=== PATIENT | male | born 1945 | race Caucasian/White ===

== ENCOUNTER → 2016-09-20 | Outpatient (CLI) | payer OTHER, BC ==
[~2016-09-20] MED LIST: IOPAMIDOL (ISOVUE 370) 100 ML BTL IV ONE
--- NOTE | 2016-09-20 14:37 | CT ---
CT Chest Angiogram With Contrast Enhancement and Multiplanar Reconstructions - September 20, 2016 at 123 5 hours History: Recurrent atrial fibrillation. Evaluate for pulmonary vein stenoses. Comparison: January 17, 2007. Technique: 1.25-mm axial multidetector helical CT imaging was performed through the chest while 90 mL Isovue-370 were injected intravenously without complication. The images were then transferred to an independent workstation where multiplanar, volume rendering, and three-dimensional reconstructions w ere performed by the interpreting physician and reviewed at multiple windows. Dose reduction techniqu es were utilized. Findings: CT Angiogram for left atrial anatomy: The pulmonary veins are evaluated. There are 2 main pulmonary v eins on the right as well as 2 on the left. Pulmonary veins draining right upper lobe: 15 mm diameter with branching occurring 12 mm from the deanne gin. The right pulmonary vein draining right lower lun mm. Bifurcation occurs 14 mm from the origin. Pulmonary vein draining left upper lun mm with branching occurring about 51 mm from the origin. Pulmonary vein draining left lower lung, 18 mm in diameter with branching occurring 29 mm from the or igin. There is normal enhancement of the pulmonary arterial vasculature without evidence of intraluminal th rombus. The thoracic aorta has a normal contour without aneurysm or dissection. CT Chest: There is a right upper lobe calcified granuloma. Dual-lead pacer is in place. The pacer was previously on the right, now it is on the left side. There are no infiltrates or effusions. There is no hilar or mediastinal lymphadenopathy. Impression: 1. Normal pulmonary vein anatomy as detailed above. 2. Calcified granuloma, benign right upper lobe. 3. Left-sided dual-lead pacer.
== END ==
LOC: FIMAGING 11:57
PROVIDERS: ATTEND Internal Medicine Cardiovascular Disease
DX: J98.4 Other disorders of lung (principal); Z95.0 Presence of cardiac pacemaker
CPT/HCPCS: 75572; Q9967

== ENCOUNTER 2016-09-21 07:00 | Observation (INO) | payer OTHER, BC ==
[2016-09-21] MEDS ORDERED: NS 1,000 ML IV ONE (07:03)
[2016-09-21] MEDS ORDERED: BENZOCAINE UNIT DOSE SPRAY HURRICAINE MM ONE (07:03)
[2016-09-21] MEDS ORDERED: fentaNYL 100 MCG/2 ML INJ IVP ONE (07:03)
[2016-09-21] MEDS ORDERED: MIDAZOLAM 2 MG/2 ML VIAL IVP ONE (07:03)
--- NOTE | 2016-09-21 07:25 | CPEKG ---
Heart Rate: 66 RR Interval: 909 P-R Interval: 192 QRSD Interval: 86 QT Interval: 380 QTC Interval: 399 QRS [place]: 56 T Wave [place]: 37 EKG Severity - ABNORMAL ECG - EKG Impression: ATRIAL-PACED RHYTHM Electronically Signed By: Taqueria Gore 21-Sep-2016 17:42:36
[2016-09-21 07:54] LABS: % IMMATURE GRANULYOCYTES 0.2 % (0.0-1.1); ABSOLUTE IMMATURE GRANULOCYTES 0.01 10^3/uL (0.00-0.10); ADD DIFF? NO; ADD MORPH? NO; ADD SCAN? NO; ATYPICAL LYMPHOCYTE FLAG 0 (0-99); FRAGMENT RBC FLAG 0 (0-99); HEMATOCRIT 43.4 % (40.0-51.0); HEMOGLOBIN 15.1 g/dL (13.7-17.5); LEFT SHIFT FLG 0 (0-99); LIPEMIA HEMOLYSIS FLAG 90 (0-99); MEAN CELL HEMOGLOBIN 30.6 pg (27.9-34.1); MEAN CELL HEMOGLOBIN CONCENTR. 34.8 g/dL (32.4-36.7); PLATELET CLUMPS FLAG 0 (0-99); PLATELET COUNT 224 10^3/uL (150-400); RED BLOOD CELL COUNT 4.93 10^6/uL (4.40-6.38); RED CELL DISTRIBUTION WIDTH 11.9 % (11.5-15.2)
[2016-09-21] MEDS ORDERED: HEPARIN/DEXTROSE 25,000 UNIT/500 ML BAG IV ONE (07:54)
[2016-09-21] MEDS ORDERED: LIDOCAINE 1% 30 ML SDV ONE (07:54)
[2016-09-21] MEDS ORDERED: HEPARIN 10,000 UNIT/10 ML MDV ONE (07:55)
[2016-09-21] MEDS ORDERED: BUPIVACAINE 0.5% 30 ML SDV ONE (07:55)
[2016-09-21] MEDS ORDERED: IOPAMIDOL (ISOVUE-370) 150 ML BTL IV ONE (07:56)
[2016-09-21 08:05] LABS: INR 0.98 (0.83-1.16); PROTIME(PATIENT) 12.9 SEC (12.0-15.0)
[2016-09-21 08:06] LABS: APTT 33.7 SEC (23.0-38.0)
[2016-09-21 08:08] LABS: ANION GAP 9 mEq/L (8-16); CALCIUM 9.1 mg/dL (8.5-10.4); CARBON DIOXIDE 25 mEq/l (22-31); CHLORIDE 107 mEq/L (97-110); CREATININE 0.9 mg/dL (0.7-1.3); GLOMERULAR FILTRATION RATE > 60; GLUCOSE 103 mg/dL (70-100); MAGNESIUM 1.8 mg/dL (1.6-2.3); POTASSIUM 4.5 mEq/L (3.5-5.2); SODIUM 141 mEq/L (134-144)
[2016-09-21] MEDS ORDERED: ROCURONIUM 50 MG/5 ML VIAL ONE (08:34)
[2016-09-21] MEDS ORDERED: ONDANSETRON 4 MG/2 ML VIAL ONE (08:34)
[2016-09-21] MEDS ORDERED: DEXAMETHASONE 4 MG/ML VIAL ONE (08:34)
[2016-09-21] MEDS ORDERED: PROPOFOL 200 MG/20 ML VIAL ONE (08:34)
[2016-09-21] MEDS ORDERED: fentaNYL 100 MCG/2 ML INJ ONE ×2 (08:34→09:57)
[2016-09-21] MEDS ORDERED: LIDOCAINE 2% 5 ML SDV ONE (08:38)
[2016-09-21] MEDS ORDERED: epHEDrine SULFATE 10 MG/ML SYR ONE ×2 (08:58→09:22)
[2016-09-21] MEDS ORDERED: PHENYLEPHRINE HCL 100 MCG/ML SYR ONE (09:04)
[2016-09-21] MEDS ORDERED: PHENYLEPHRINE 10 MG/ML SDV ONE (09:17)
[2016-09-21] MEDS ORDERED: ATROPINE SULFATE 1 MG/10 ML SYR ONE (10:27)
[2016-09-21] MEDS ORDERED: PROTAMINE SULFATE 50 MG/5 ML VIAL IVP ONE (10:35)
[2016-09-21] MEDS ORDERED: TEMAZEPAM 15 MG CAP PO PRN (11:05)
[2016-09-21] MEDS ORDERED: OXYBUTYNIN 5 MG EXT REL TAB PO PRN (11:05)
--- NOTE | 2016-09-21 11:10 | EPPROC ---
Electrophysiology Procedure Note: ELECTROPHYSIOLOGIC STUDY AND BALLOON-CATHETER MEDIATED CRYOABLATION FOR PAROXYSMAL ATRIAL FIBRILLATION Procedures performed: 61451-77 EP evaluation with RA/RV/LA pace/record, with arrhythmia induction 01002-42 EP evaluation with RA/RV pace record, insert/reposition catheter, with arrhythmia induction 47932 Atrial fibrillation ablation Intracardiac echocardiogram Transseptal puncture Fluoroscopy INDICATION: Paroxysmal atrial fibrillation Prior RF ablation x 2 for AFIB in 2005 and 2006 at our institution PROCEDURE: The patient arrived in the Electrophysiology Laboratory in the fasting state. The right groin, left groin and right infraclavicular area were prepped and draped in the usual sterile fashion. Anesthesiologist administered general anesthesia - Dr. Jaime Hernandez . All catheters were placed percutaneously using the Seldinger technique and advanced into position under fluoroscopic guidance. One #7 Irish deflectable octapolar electrode catheter was placed in the His-bundle position via the left femoral vein (2mm spacing, IVC electrode for unipolar recordings). This catheter was placed in the coronary sinus after transseptal puncture and later placed in the SVC-R subclavian vein junction to pace the right phrenic nerve during right pulmonary vein ablation. One #8 Irish AcuNaV ultrasound catheter was placed in the left femoral vein and advanced into the right atrium. One #4 Irish sheath was inserted into the left femoral artery via percutaneous technique and used for continuous arterial blood pressure monitoring and intermittent ACT determination. Programmed stimulation was performed from the right atrium, left atrium (CS) and right ventricle. There was no evidence of AV accessory pathway. Intracardiac echo evaluation of the left atrium and pulmonary veins was performed. Baseline ACT was drawn and heparin bolus was administered and heparin drip was started prior to transseptal puncture. ACT was checked every 15 minutes and maintained in the range of 350-400 seconds. One 14Fr short sheath was placed in the right femoral vein. One 8Fr SL1 sheath was advanced into the right atrium via the 14Fr short sheath. Transseptal puncture was performed under intracardiac ultrasound, fluoroscopic and hemodynamic guidance placing the sheath into the left atrium. [place] RF needle ( C0 curve) was used. The mean left atrial pressure was 12 mmHg. Pulmonary vein angiogram was done using SL1 sheath. CT angiography of pulmonary veins was done previously. There were distinct LSPV, LIPV, RSPV and RIPV. The SL1 sheath was exchanged for a Medtronic Flexcath sheath using an Amplatz stiff guide wire. A 28 mm Cryoballoon catheter with a 20 mm Achieve catheter was placed via the sheath into the left atrium. Intracardiac ultrasound and PV angiograms were used to assist in placing the mapping catheter at the antrum of the pulmonary veins. All pulmonary veins were isolated successfully using cryoballoon ablation using freeze/thaw/freeze cycles at 2-3-minute intervals, with good [id number] of isolation. Coumadin ridge/Ligament of [place] region was ablated. Pre and post pulmonary vein recordings were measured on the spiral Achieve catheter to ensure complete pulmonary vein isolation. During the right-sided ablation, phrenic nerve pacing was performed to assess the phrenic nerve strength ( manually and with ICE visualization of liver movement during phrenic capture) and the phrenic nerve was intact throughout the right-sided ablation and at the end of the procedure. LSPV and RSPV had prominent PV signals pre procedure. An esophageal temperature probe (12 electrode, Circa) was placed by the anesthesiologist at the beginning of the procedure. Esophageal temperature was monitored continuously and cryoablation was interrupted if esophageal temperature was <15 C. Esophagus was closest to RIPV Cryoapplications 8, total cryoablation time 1172 s. ICE imaging post ablation was consistent with pre ablation imaging with no changes noted, moreover there was no left atrial/left ventricular thrombus and no pericardial effusion. The catheters were withdrawn. Protamine was given. The sheaths were removed and manual pressure was used for hemostasis. The patient was recovered from anesthesia. There were no complications. The patient was arousable and moving all four extremities at the end of the procedure. Pacemaker was reprogrammed to DDDR 70-130 bpm at end of procedure. Lead parameters and position were unchanged. CONCLUSIONS: 1. Paroxysmal atrial fibrillation. 2. Successful pulmonary vein isolation procedure (left and right pulmonary vein antrum) using cryoballoon ablation. 3. No apparent complications. Patient Problems: Problems Problem Status Diagnosed Atrial fibrillation and flutter Acute
--- NOTE | 2016-09-21 11:27 | CPEKG ---
Heart Rate: 70 RR Interval: 857 P-R Interval: 184 QRSD Interval: 88 QT Interval: 376 QTC Interval: 406 QRS [place]: 11 T Wave [place]: 52 EKG Severity - ABNORMAL ECG - EKG Impression: ATRIAL-PACED RHYTHM Electronically Signed By: Taqueria Gore 21-Sep-2016 17:42:28
[2016-09-21] MEDS ORDERED: WARFARIN SODIUM 5 MG TAB PO SCH (11:30)
[2016-09-21 12:12] LABS: ANION GAP 7 mEq/L (8-16); CALCIUM 8.2 mg/dL (8.5-10.4); CARBON DIOXIDE 25 mEq/l (22-31); CHLORIDE 109 mEq/L (97-110); CREATININE 0.9 mg/dL (0.7-1.3); GLOMERULAR FILTRATION RATE > 60; GLUCOSE 112 mg/dL (70-100); MAGNESIUM 1.7 mg/dL (1.6-2.3); POTASSIUM 4.7 mEq/L (3.5-5.2); SODIUM 141 mEq/L (134-144)
[2016-09-21] MEDS ORDERED: HYDROCODONE/APAP 5/325 TAB ONE ×2 (12:46→14:29)
[2016-09-21] MEDS ORDERED: KETOROLAC 15 MG/1 ML SDV IVP PRN (14:49)
[2016-09-21] MEDS ORDERED: KETOROLAC 30 MG/1 ML SDV ONE (17:41)
[2016-09-21] MEDS: PANTOPRAZOLE SODIUM 40 MG TAB PO SCH (18:18)
[2016-09-21] MEDS: METOPROLOL SUCCINATE XR 100 MG TAB PO SCH (18:35)
[2016-09-21] MEDS ORDERED: LACTULOSE 20 GM/30 ML UDCUP PO PRN (19:18)
[2016-09-21] MEDS ORDERED: POLYETHYLENE GLYCOL 3350 17 GM PKT PO PRN (19:18)
[2016-09-21] MEDS ORDERED: BISACODYL 10 MG SUPP PR PRN (19:18)
[2016-09-21] MEDS ORDERED: MAGNESIUM HYDROXIDE 30 ML UDCUP PO PRN (19:18)
[2016-09-21] MEDS: ENOXAPARIN 80 MG/0.8 ML SYR SC SCH (20:31)
[2016-09-21] MEDS: SENNOSIDES/DOCUSATE SODIUM TAB PO SCH (20:31)
[2016-09-21] MEDS: HYDROCODONE/APAP 5/325 TAB PO PRN (22:46)
[2016-09-22 05:54] LABS: % IMMATURE GRANULYOCYTES 0.1 % (0.0-1.1); ABSOLUTE IMMATURE GRANULOCYTES 0.01 10^3/uL (0.00-0.10); ADD DIFF? NO; ADD MORPH? NO; ADD SCAN? NO; ATYPICAL LYMPHOCYTE FLAG 0 (0-99); FRAGMENT RBC FLAG 0 (0-99); LEFT SHIFT FLG 0 (0-99); LIPEMIA HEMOLYSIS FLAG 90 (0-99); MEAN CELL HEMOGLOBIN 31.3 pg (27.9-34.1); MEAN CELL HEMOGLOBIN CONCENTR. 34.2 g/dL (32.4-36.7); MEAN CELL VOLUME 91.6 fL (81.5-99.8); MEAN PLATELET VOLUME 9.9 fL (8.7-11.7); PLATELET CLUMPS FLAG 0 (0-99); PLATELET COUNT 170 10^3/uL (150-400); RED BLOOD CELL COUNT 4.15 10^6/uL (4.40-6.38); RED CELL DISTRIBUTION WIDTH 12.2 % (11.5-15.2)
[2016-09-22] MEDS: HYDROCODONE/APAP 5/325 TAB PO PRN (06:00)
[2016-09-22] MEDS ORDERED: LEVOTHYROXINE 50 MCG TAB PO SCH (06:00)
[2016-09-22 06:03] LABS: INR 1.05 (0.83-1.16); PROTIME(PATIENT) 13.6 SEC (12.0-15.0)
[2016-09-22 06:11] LABS: ANION GAP 6 mEq/L (8-16); CALCIUM 8.5 mg/dL (8.5-10.4); CARBON DIOXIDE 27 mEq/l (22-31); CHLORIDE 108 mEq/L (97-110); CREATININE 0.9 mg/dL (0.7-1.3); GLOMERULAR FILTRATION RATE > 60; GLUCOSE 94 mg/dL (70-100); POTASSIUM 4.2 mEq/L (3.5-5.2); SODIUM 141 mEq/L (134-144)
[2016-09-22 06:23] LABS: CREATINE KINASE-MB FRACTION 9.45 ng/mL (0-3.19)
[2016-09-22 06:25] LABS: CK-MB INTERPRETATION POSITIVE (NEGATIVE)
[2016-09-22] MEDS: SENNOSIDES/DOCUSATE SODIUM TAB PO SCH (07:53)
[2016-09-22] MEDS: PANTOPRAZOLE SODIUM 40 MG TAB PO SCH (07:53)
[2016-09-22] MEDS: METOPROLOL SUCCINATE XR 100 MG TAB PO SCH (07:53)
[2016-09-22] MEDS: ENOXAPARIN 80 MG/0.8 ML SYR SC SCH (07:53)
[2016-09-22 07:58] VITALS: TEMP 97.7
--- NOTE | 2016-09-22 08:51 | CPEKG ---
Heart Rate: 70 RR Interval: 857 P-R Interval: 187 QRSD Interval: 90 QT Interval: 360 QTC Interval: 389 QRS [place]: 32 T Wave [place]: 49 EKG Severity - ABNORMAL ECG - EKG Impression: ATRIAL-PACED RHYTHM Electronically Signed By: Kwabena Scott 22-Sep-2016 11:19:46
[2016-09-22] MEDS ORDERED: MULTIVITAMINS 1 EACH TAB PO SCH (09:00)
--- NOTE | 2016-09-22 10:47 | ECHO ---
[id number] + + [address] : : [place] [address] : : [phone] + + Adult Echocardiographic Report + + :Name: MARQUEZ PHILLIPS NStudy Date: 09/22/2016 08:17 AM : : Hospital Admission Number: [id number] Lo cation: 252: :: 1945 Gender: Male Height: 71 in : :Age: 71 yrs Race: WH Weight: 17 5 lb : :Reason For Study: Afib/F/U post EP study : : BSA: 2.0 m eters2 : :History: Pacer : : : + + MMode/2D Measurements & Calculations IVSd: 1.1 cm LVIDd: 4.7 cm FS: 47.6 % Ao root diam: LVPWd: 0.82 cm LVIDs: 2.4 cm EDV(Teich): 3.8 cm 100.0 ml LA dimension: ESV(Teich): 3.8 cm 21.0 ml EF(Teich): 79.0 % LVLd ap4: 7.3 cm SV(MOD-sp4): EDV(MOD-sp4): 44.0 ml 62.0 ml LVLs ap4: 5.9 cm ESV(MOD-sp4): 18.0 ml EF(MOD-sp4): 71.0 % Normal Measurement Values: + + :LVIDd (3.5-5.7cm) IVSd (0.6-1.1cm) LVPWd (0.6-1.1cm) Aortic Root (2.0-3.7cm)Left Atrium (1.5-4.0cm): :LV Vol(d) (76-115ml) LV Vol(s) (29-48ml) Ejec Fraction (50-65%)PV Delgado (0.6- 1.2m/s) TV Delgado (0.4-1.0m/s) : :MV E Delgado (0.8-1.0m/s)MV A Delgado (0.3-1.0m/s)LVOT Delgado (0.7-1.2m/s) Asc Ao Delgado ( 0.9-1.8m/s) : + + Doppler Measurements & Calculations MV E max delgado: 81.4 cm/sec Ao V2 max: 97.7 cm/sec TR max delgado: 248.4 cm/sec MV A max delgado: 35.5 cm/sec Ao max P.8 mmHg TR max P.7 mmHg MV E/A: 2.3 RAP systole: 5.0 mmHg RVSP(TR): 29.7 mmHg Left Ventricle The left ventricle is normal in size. There is mild concentric left ventricular hypertrophy. Left ventricular systolic function is normal. Ejection Fraction = 65-70%. No regional wall motion abnormalities noted. Right Ventricle The right ventricle is normal in size and function. There is a pacemaker lead in the right ventricle. Atria The left atrium is mildly dilated. The right atrium is mildly dilated. The interatrial septum is intact with no evidence for an atrial septal defect. Mitral Valve The mitral valve is normal in structure and function. There is no evidence of mitral valve prolapse. There is no mitral valve stenosis. There is mild mitral regurgitation. Tricuspid Valve Normal tricuspid valve. Right ventricular systolic pressure is normal. There is moderate tricuspid regurgitation. Aortic Valve The aortic valve is trileaflet. The aortic valve opens well. There is no aortic stenosis. There is no aortic insufficiency. Pulmonic Valve The pulmonic valve is normal in structure and function. Trace pulmonic valvular regurgitation. Great Vessels The aortic root is normal size. Pericardium/Pleural There is no pericardial effusion. Conclusion A complete two-dimensional transthoracic echocardiogram was performed (2D, M-mode, Doppler and color flow Doppler). Left ventricular systolic function is normal. There is mild concentric left ventricular hypertrophy. Ejection Fraction = 65-70%. There is a pacemaker lead in the right ventricle. The left atrium is mildly dilated. The right atrium is mildly dilated. There is mild mitral regurgitation. There is moderate tricuspid regurgitation. Right ventricular systolic pressure is normal. Trace pulmonic valvular regurgitation. There is no pericardial effusion. Final Reading Physician: Kwabena Scott MD electronically signed on 09/22/2016 10:45 AM Ordering Physician: Kwabena Scott Performed By: Chantell Mast, CS
--- NOTE | 2016-09-22 10:49 | ECHO ---
[id number] + + [address] : : [facility] [address] : : [phone] + + Transesophageal Echocardiographic Report + + :Name: MARQUEZ PHILLIPS NStudy Date: 09/21/2016 08:52 AM : : Hospital Admission Number: [id number] Lo cation: 356: :: 1945 Gender: Male : :Age: 71 yrs Race: WH : :Reason For Study: Eval LV Fx : :History: Pre EP : + + Left Ventricle The left ventricle is normal in size. The left ventricular ejection fraction is normal. Right Ventricle There is a pacemaker lead in the right ventricle. Atria No left atrial mass or thrombus visualized. No thrombus is detected in the left atrial appendage. Mitral Valve The mitral valve is normal in structure and function. There is no mitral valve stenosis. There is trace mitral regurgitation. Tricuspid Valve The tricuspid valve is normal in structure and function. Aortic Valve The aortic valve is normal in structure and function. The aortic valve is trileaflet. There is no aortic stenosis. There is no aortic insufficiency. Vessels The aortic root is normal size. Pericardium There is no pericardial effusion. Conclusion A 2D transesophageal echocardiogram with color flow Doppler was performed. The left ventricular ejection fraction is normal. No left atrial mass or thrombus visualized. No thrombus is detected in the left atrial appendage. The mitral valve is normal in structure and function. There is trace mitral regurgitation. The tricuspid valve is normal in structure and function. The aortic valve is normal in structure and function. The aortic valve is trileaflet. There is no pericardial effusion. Final Reading Physician: Kwabena Scott MD electronically signed on 09/22/2016 10:48 AM Ordering Physician: Kwabena Scott Performed By: Kwabena Scott MD
--- NOTE | 2016-09-22 11:57 | GDS ---
[f rep st] DISCHARGE SUMMARY DISCHARGE DIAGNOSES: 1. Paroxysmal atrial fibrillation, status post cryoballoon ablation. 2. Multiple sclerosis. HOSPITAL COURSE: For detailed H and P, please see prior dictation. Briefly, Carlos is a 71-year-old ma le with history of paroxysmal atrial fibrillation. He also has a history of atrial flutter and has h ad ablations for atrial flutter and atrial fibrillation in 2005. Most recently, he was on Tikosyn, m etoprolol and digoxin, but continued to have breakthrough atrial fibrillation. He does have a pacema ker in place and he was found to have rates as high as 140-160 beats per minute with associated dizzi ness and near syncope. Ultimately he decided to proceed with an EP study and ablation. This was per formed by Dr. Kwabena Scott on September 21, 2016. He had a cryoballoon ablation. The procedure went wit hout any associated complications. The following morning, he denied any chest discomfort or palpitat ions. He was monitored on telemetry and remained in normal sinus rhythm. The preliminary results of his echo revealed preserved LV function without any evidence of pericardial effusion. His EKG revea led normal sinus rhythm. His troponin peaked at 4.340. PHYSICAL EXAMINATION: GENERAL: The patient appears in no acute distress. VITALS: Blood pressure 1 13/71, heart rate 71, oxygen saturation 96% on room air, afebrile. LUNGS: Clear to auscultation. N o wheezes, rhonchi, or crackles auscultated. CARDIAC: Regular rate and rhythm without any murmurs, rubs, or gallops appreciated. EXTREMITIES: Access obtained for EP study and ablation clean, intact, without any evidence of infection or hematoma. DISCHARGE MEDICATIONS: Digoxin and Tikosyn have been discontinued. He will continue Lovenox 80 mg s ubcu twice daily until his INR is between 2 and 3. He should continue Clare 5/325 mg p.r.n. for pain . Synthroid 50 mcg daily. Metoprolol 100 mg twice daily. Multivitamin daily. Ditropan XL 15-30 mg p.r.n. Protonix 40 mg daily. Restoril 30 mg p.r.n. Coumadin 5 mg Tuesday, Tuesday, , , with 7 mg on Tuesday, Tuesday, Tuesday. PLAN: The patient is currently stable and ready for discharge home. He is aware that his digoxin an d Tikosyn had been discontinued. He will remain on metoprolol. He will resume Coumadin this evening and will need to remain on Lovenox until his INR is between 2 and 3. He has a PT/INR machine at [facility] and will check his levels on Tuesday. Groin precautions were discussed with him today. He will fol low up with Dr. Kwabena Scott in 2 weeks as scheduled. Greater than 30 minutes was spent coordinating t he patient's care today. /[id number]/MODL
[2016-09-22 12:10] VITALS: BP 123/61; PULSE 72; RESP 14; O2SAT 95
[2016-09-22] MEDS ORDERED: WARFARIN SODIUM 2 MG TAB PO SCH (16:00)
[2016-09-23] MEDS ORDERED: WARFARIN SODIUM 5 MG TAB PO SCH (16:00)
== END 2016-09-22 12:12 | disposition home or self-care (01) ==
LOC: FCATH 07:00 → F2W 11:45 → F2N 11:46
PROVIDERS: ADMIT Internal Medicine Cardiovascular Disease; ATTEND Internal Medicine Cardiovascular Disease
PROC: 025S3ZZ Destruction of Right Pulmonary Vein, Percutaneous Approach (ICD-10-PCS; principal; 2016-09-21)
PROC: 025T3ZZ Destruction of Left Pulmonary Vein, Percutaneous Approach (ICD-10-PCS; 2016-09-21)
PROC: 02H73MZ Insertion of Cardiac Lead into Left Atrium, Percutaneous Approach (ICD-10-PCS; 2016-09-21)
PROC: 4A023FZ Measurement of Cardiac Rhythm, Percutaneous Approach (ICD-10-PCS; 2016-09-21)
PROC: 02K83ZZ Map Conduction Mechanism, Percutaneous Approach (ICD-10-PCS; 2016-09-21)
PROC: B245ZZZ Ultrasonography of Left Heart (ICD-10-PCS; 2016-09-21)
PROC: B246ZZ4 Ultrasonography of Right and Left Heart, Transesophageal (ICD-10-PCS; 2016-09-21)
DX: I48.0 Paroxysmal atrial fibrillation (principal); G35 Multiple sclerosis; E03.9 Hypothyroidism, unspecified; I10 Essential (primary) hypertension; N40.0 Benign prostatic hyperplasia without lower urinary tract symptoms; Z95.0 Presence of cardiac pacemaker; Z79.01 Long term (current) use of anticoagulants; Z88.0 Allergy status to penicillin
CPT/HCPCS: 93005; 93306; 93312; J1100; J1644; J1650; J1885; J2370; J2405; J2704; J2720; J3010; Q9967; J0461

== ENCOUNTER → 2016-10-07 | Outpatient (CLI) | payer OTHER, BC | LOC: BHFA 13:30 | PROVIDERS: ATTEND Internal Medicine Cardiovascular Disease | DX: I48.91 Unspecified atrial fibrillation (principal) ==